=== PATIENT | male | born 1975 | race Caucasian/White ===

== ENCOUNTER 2022-05-25 07:22 | Emergency (ER) | payer OTHER ==
[~2022-05-25] VITALS: Ht 177.8 cm; Wt 80.7 kg
[~2022-05-25 07:22] MED LIST: ANAPROX DS550 MG PO; AUGMENTIN 875 M1 TAB PO; FLEXERIL10 MG PO; MEDROL DOSEPAK4 MG PO; NAPROSYN500 MG PO; NAPROXEN500 MG PO; NEURONTIN300 MG PO; NKHM; ROBAXIN500 MG PO; SEPTRA DS 800 M1 TAB PO; TRAMADOL HCL50 MG PO; VICODIN 5-3001 EACH PO; VICODIN 5/500 505 MG PO; VICODIN 500 MG-1 TAB PO
== END 2022-05-25 08:12 | disposition home or self-care (01) ==
LOC: ED 07:22
DX: R44.0 Auditory hallucinations (principal); T43.225A Adverse effect of selective serotonin reuptake inhibitors, initial encounter; Z98.890 Other specified postprocedural states; F41.9 Anxiety disorder, unspecified; Y92.89 Other specified places as the place of occurrence of the external cause

== ENCOUNTER 2022-06-27 13:07 | Emergency (ER) | payer OTHER ==
[~2022-06-27] VITALS: Ht 180.3 cm; Wt 80.7 kg
[2022-06-27] MEDS ORDERED: ZANAFLEX4 MG PO (16:38)
== END 2022-06-27 18:24 | disposition home or self-care (01) ==
LOC: ED 13:07
DX: S16.1XXA Strain of muscle, fascia and tendon at neck level, initial encounter (principal); S43.401A Unspecified sprain of right shoulder joint, initial encounter; S09.90XA Unspecified injury of head, initial encounter; Z79.899 Other long term (current) drug therapy; W20.8XXA Other cause of strike by thrown, projected or falling object, initial encounter; Y93.89 Activity, other specified; Y92.89 Other specified places as the place of occurrence of the external cause; Y99.8 Other external cause status

== ENCOUNTER 2022-07-22 12:04 | Inpatient (IN) | payer OTHER ==
[~2022-07-22] VITALS: Ht 180.3 cm; Wt 75.5 kg
[~2022-07-22 12:04] MED LIST changes: +ZANAFLEX4 MG PO
[2022-07-22 12:36] VITALS: BP 131/81
[2022-07-22] MEDS ORDERED: GABAPENTIN600 MG PO (13:33)
[2022-07-22] MEDS ORDERED: BUPRENORPHINE-1 EAC1 SL (13:34)
[2022-07-22] MEDS ORDERED: FISH OIL + D31 EACH PO (13:41)
[2022-07-22] MEDS ORDERED: MULTI-VITAMIN1 EACH PO (13:44)
[2022-07-22] MEDS ORDERED: SOFOSBUVIR-VEL1 EACH PO (13:48)
[2022-07-22 13:54] LABS: BASO # 0.1 10*3/uL (0.0-0.1); BASO % 1.4 % (0.0-1.0); EOS # 0.4 10*3/uL (0.0-0.4); EOS % 7.8 % (1.0-4.0); HEMATOCRIT 46.8 % (42.0-52.0); LYMPH # 1.7 10*3/uL (1.3-4.4); LYMPH % 33.5 % (27.0-41.0); MEAN CELL VOLUME 85.4 fl (80.0-94.0); MEAN CORPUSCULAR HGB 27.9 pg (27.0-31.0); MEAN CORPUSCULAR HGB CONC 32.7 g/dl (33.0-37.0); MEAN PLATELET VOLUME 10.5 fl (9.6-12.3); MONO # 0.3 10*3/uL (0.1-1.0); MONO % 6.4 % (3.0-9.0); NEUT # 2.5 10*3/uL (2.3-7.9); NEUT % 50.7 % (47.0-73.0); PLATELET COUNT AUTOMATED 191 10*3/uL (130-400); RED BLOOD COUNT 5.48 10*6/uL (4.50-5.90); RED CELL DISTRI WIDTH 12.7 % (0-14.5)
[2022-07-22 14:05] LABS: ACT PARTIAL THROMBO TIME 27.6 SECONDS (20.0-32.1)
[2022-07-22 14:14] LABS: ALKALINE PHOSPHATASE 82 U/L (46-116); BUN 7 mg/dl (9-23); CHLORIDE 105 mmol/L (98-107); LIPASE 33 U/L (12-53); POTASSIUM 4.8 mmol/L (3.4-5.1); SGPT/ALT 17 U/L (10-49); TOTAL PROTEIN 6.9 gm/dL (6.0-8.0)
[2022-07-22 14:19] LABS: ETHYL ALCOHOL < 3.0 mg/dl (<3)
[2022-07-22 14:54] LABS: BILIRUBIN Negative (Negative); BLOOD Negative (Negative); CLARITY Clear (Clear); COLOR Yellow (Yellow); GLUCOSE Negative (Negative); KETONE Negative (Negative); LEUKO ESTERASE Trace (Negative); NITRITE Negative (Negative); UROBILINOGEN 0.2 E.U./dl (0.0-1.0)
[2022-07-22 15:00] LABS: URINE AMPHETAMINES Negative (1000ng/ml); URINE BARBITURATES Negative (200ng/ml); URINE BENZODIAZEPINES Negative (200ng/ml); URINE CANNABINOIDS (THC) Negative (50ng/ml); URINE COCAINE Negative (300ng/ml); URINE METHADONE Negative (300ng/ml); URINE OPIATES Negative (300ng/ml); URINE PHENCYCLIDINE Negative (25ng/ml)
[2022-07-22 15:35] LABS: RBC 0-2 rbc/hpf (0-2)
[2022-07-22 17:17] VITALS: BP 130/77
[2022-07-22 21:07] VITALS: BP 126/73
[2022-07-22 22:00] VITALS: BP 114/63
[2022-07-23] MEDS ORDERED: NEURONTIN300 MG PO (01:27)
[2022-07-23 06:45] LABS: BASO # 0.1 10*3/uL (0.0-0.1); BASO % 1.2 % (0.0-1.0); EOS # 0.5 10*3/uL (0.0-0.4); EOS % 9.8 % (1.0-4.0); HEMATOCRIT 45.4 % (42.0-52.0); LYMPH # 2.1 10*3/uL (1.3-4.4); LYMPH % 42.2 % (27.0-41.0); MEAN CELL VOLUME 85.5 fl (80.0-94.0); MEAN CORPUSCULAR HGB 27.7 pg (27.0-31.0); MEAN CORPUSCULAR HGB CONC 32.4 g/dl (33.0-37.0); MEAN PLATELET VOLUME 11.3 fl (9.6-12.3); MONO # 0.3 10*3/uL (0.1-1.0); MONO % 6.6 % (3.0-9.0); PLATELET COUNT AUTOMATED 207 10*3/uL (130-400); RED BLOOD COUNT 5.31 10*6/uL (4.50-5.90); RED CELL DISTRI WIDTH 12.7 % (0-14.5)
[2022-07-23 07:27] LABS: ALKALINE PHOSPHATASE 76 U/L (46-116); BUN 9 mg/dl (9-23); CHLORIDE 105 mmol/L (98-107); CHOLESTEROL 159 mg/dL (<200); FREE T4 0.88 ng/dl (0.89-1.76); LDL CHOLESTEROL 93 mg/dL (9-159); SGPT/ALT 15 U/L (10-49); THYROID STIM HORMONE (HS) 2.307 uIU/ml (0.550-4.780); TOTAL PROTEIN 6.7 gm/dL (6.0-8.0); TRIGLYCERIDES 94 mg/dl (<150)
[2022-07-23 07:31] LABS: POTASSIUM 3.8 mmol/L (3.4-5.1)
[2022-07-23 08:00] VITALS: BP 105/66
[2022-07-23 12:00] VITALS: BP 119/87
[2022-07-23 16:00] VITALS: BP 136/64
[2022-07-23 17:26] VITALS: BP 128/81
[2022-07-23 20:00] VITALS: BP 105/66
[2022-07-24] VITALS: BP 109/72
[2022-07-24 08:00] VITALS: BP 102/70
[2022-07-24 12:00] VITALS: BP 114/69
[2022-07-24 16:00] VITALS: BP 119/68
[2022-07-24 20:14] VITALS: BP 107/60
[2022-07-25] VITALS: BP 92/54
[2022-07-25 08:00] VITALS: BP 119/88
== END 2022-07-25 09:45 | disposition home or self-care (01) | DRG 773 ==
LOC: ED 12:04 → 5E 16:06 → EDHOLD 16:06 → 5E 21:06
PROVIDERS: Physician Assistant; Student in an Organized Health Care Education/Training Program; ADMIT Internal Medicine; ATTEND Internal Medicine
DX: F11.93 Opioid use, unspecified with withdrawal (principal); B19.20 Unspecified viral hepatitis C without hepatic coma; R00.1 Bradycardia, unspecified; M54.9 Dorsalgia, unspecified; G89.29 Other chronic pain; F17.210 Nicotine dependence, cigarettes, uncomplicated; Z71.6 Tobacco abuse counseling; Z83.3 Family history of diabetes mellitus; Z79.899 Other long term (current) drug therapy